=== PATIENT | female | born 1965 | race Caucasian/White ===

== ENCOUNTER 2017-03-13 19:46 | Emergency (ER) | payer SELFPAY ==
[~2017-03-13] VITALS: Wt 74.0 kg
== END 2017-03-14 00:15 | disposition left against medical advice (07) ==
LOC: E/R 19:46
DX: Z53.21 Procedure and treatment not carried out due to patient leaving prior to being seen by health care provider (principal)
CPT/HCPCS: 93005

== ENCOUNTER 2018-10-24 19:53 | Emergency (ER) | payer OTHER ==
[~2018-10-24] VITALS: Ht 160 cm; Wt 82.0 kg
[2018-10-24 20:04] VITALS: Ht 160 cm; Wt 82.0 kg
[2018-10-24] MEDS ORDERED: KETOROLAC 15 MG INJ IV STA (21:16)
--- NOTE | 2018-10-24 21:22 | ERD ---
ER Documentation Chief Complaint Chief Complaint vag bleed w/pelvic pain x 3 months; hx HTN HPI 53-year-old woman with a long history of dysfunctional uterine bleeding and uterine fibroids here for pain control. She has had multiple previous ultrasounds and workups and states she is going to call her pageant director on Saturday to schedule appointment for uterine biopsy. She was just discharged from [facility] with a prescription for tranexamic acid p.o., nitrofurantoin, and ibuprofen. She recently completed a round of medroxyprogesterone but was told she should not take any more estrogen or progesterone medications until uterine biopsy has been performed. She states she has been having irregular intermittent daily uterine bleeding for the last 3 months. Recent blood work was within normal limits, patient denies fevers or chills, no loss of consciousness, no chest pain or shortness of breath. Patient states her ibuprofen is not working and is requesting IV opioids ROS All systems reviewed and are negative except as per history of present illness. Allergies Allergies: Coded Allergies: No Known Allergy (Unverified , 03/13/17) FmHx Family History: No diabetes Physical Exam Vitals Vital Signs Date Temp Pulse Resp B/P (MAP) Pulse Ox O2 O2 Flow FiO2 Time Delivery Rate 10/24/18 99.9 100 22 183/116 97 20:04 (138) Physical Exam GENERAL: Well-developed, well-nourished, well-hydrated, in no apparent distress, looks nontoxic in appearance HEENT: Moist mucous membranes, pink conjunctiva, no cervical spine tenderness or step-off deformities, no goiter, no jaundice or icterus, extraocular movements intact without pain. No submandibular induration, and no pharyngeal erythema CARDIAC: Regular rate and rhythm, no murmurs rubs or gallops LUNGS: Clear bilaterally no wheezing crackles or stridor ABDOMEN: Soft nontender, no guarding, no rigidity, no rebound, no psoas sign no obturator sign. Normoactive bowel sounds SKIN: Warm and dry to touch, no abrasions, contusions, or hematomas, no lacerations, no ecchymosis, no target lesions, and without ulcers EXTREMITIES: No clubbing cyanosis or edema, calves are bilaterally symmetrical, no Homans sign, no popliteal cord sign. Distal pulses equal and bilateral PSYCH: Normal affect without agitation or irritability Results 24 hrs Current Medications Medications Dose Sig/Corky Start Time Status Last (Trade) Ordered Route PRN Stop Time Admin Dose Reason Admin Ketorolac 15 mg ONCE STAT 10/24/18 DC Tromethamine IV 21:16 (Toradol) 10/24/18 21:17 1 tab ONCE ONCE 10/24/18 Acetaminophen PO 21:30 / 10/24/18 21:31 Hydrocodone Bitart ([place] (5/325)) Procedures/MDM For pain control administered [place] 1 tablet p.o. and Toradol 15 mg IV x1. Patient's vital signs were normal and pain has improved. I deferred opioid analgesics to her primary care physician and pain specialist. Patient states she will be making an appointment with her pageant director on Saturday (in 2 days) and is currently undergoing therapy with ibuprofen, nitrofurantoin, and p.o. tranexamic acid. She states with the above therapy over the last day and a half her bleeding has improved and she has been feeling a little better Differential diagnoses considered, included but not limited to acute coronary syndrome, pulmonary embolism, aortic dissection, abdominal aortic aneurysm, sepsis, stroke, meningitis, encephalitis, pneumonia, appendicitis, cholecystitis, bowel obstruction, pyelonephritis, nephrolithiasis, cystitis, as well as metabolic, hematologic, and electrolyte abnormalities. As well as abscess, cellulitis, fractures, and dislocations. Patient feels much better at this time, and vital signs are normal, symptoms have improved. I did give strict instructions to return to the ED if symptoms continue or worsen, patient will otherwise follow-up with primary care physician. Patient understood instructions and agreed to plan. Disclaimer: Inadvertent spelling and grammatical errors are likely due to EHR/dictation software use and do not reflect on the overall quality of patient care. Also, please note that the electronic time recorded on this note does not necessarily reflect the actual time of the patient encounter. Departure Diagnosis: Primary Impression: Dysfunctional uterine bleeding Additional Impression: Uterine fibroid Uterine leiomyoma location: intramural Qualified Codes: D25.1 - Intramural leiomyoma of uterus Condition: Good Patient Instructions: Dysfunctional Uterine Bleeding CICI HERRING MD Oct 24, 2018 21:22
[2018-10-24 21:26] VITALS: BP 119/71; PULSE 73; RESP 23
[2018-10-24] MEDS ORDERED: HYDROCODONE/APAP (5/325) TAB PO ONE (21:30)
== END 2018-10-24 21:59 | disposition home or self-care (01) ==
LOC: E/R 19:53
DX: N93.8 Other specified abnormal uterine and vaginal bleeding (principal); D25.1 Intramural leiomyoma of uterus
CPT/HCPCS: J1885; Z7610; 99284

== ENCOUNTER 2018-10-28 20:10 | Inpatient (IN) | payer OTHER ==
[~2018-10-28] VITALS: Ht 157.5 cm; Wt 80.5 kg
[2018-10-28] MEDS ORDERED: PANT40TA4 PO (23:25)
[2018-10-28] MEDS ORDERED: BENA40TA56 PO (23:25)
[2018-10-28] MEDS ORDERED: NITR100C6 PO (23:25)
[2018-10-28] MEDS ORDERED: TRAN650T5 PO (23:25)
[2018-10-28] MEDS ORDERED: FER325 PO (23:25)
[2018-10-28] MEDS ORDERED: IBUP-1545 PO (23:25)
--- NOTE | 2018-10-29 00:46 | ERD ---
ER Documentation Chief Complaint Chief Complaint VB x 3 months awaiting approval for biopsy HPI Is a 51-year-old female with dysfunctional uterine bleeding for the past 3 months is awaiting approval for biopsy comes in today because she passed clots and used 8 pads. She said she has a history of blood transfusions in the past and wanted to make sure she did not need one. She denies any fevers chills nausea vomiting. Denies any other current complaints. ROS All systems reviewed and are negative except as per history of present illness. Medications Home Meds Reported Medications Ferrous Sulfate* (Ferrous Sulfate*) 325 Mg Tabec, 325 MG PO TID, TAB 10/28/18 Nitrofurantoin Monohyd Macrocr (Macrobid) 100 Mg Capsr, 100 MG PO BID for 7 Days, #14 TK 1 C PO BID FOR 7 DAYS 10/28/18 Pantoprazole* (Pantoprazole*) 40 Mg Tablet.dr, 40 MG PO DAILY, TAB 10/28/18 Ibuprofen* (Ibuprofen*) 800 Mg Tab, 800 MG PO Q6H PRN for PAIN, TAB 10/28/18 Tranexamic Acid (TRANEXAMIC ACID) 650 Mg Tablet, 650 MG PO, TAB 10/28/18 Benazepril Hcl* (Benazepril Hcl*) 40 Mg Tablet, 40 MG PO DAILY, #30 TAB 10/28/18 Allergies Allergies: Coded Allergies: aspirin (Unverified Adverse Reaction, Intermediate, EYE BLOODSHOT, 10/28/18) ibuprofen (Unverified Adverse Reaction, Intermediate, EYE BLOODSHOT, 10/28/18) PMhx/Soc History of Surgery: Yes () Hx Cardiac Disorders: Yes (HTN) Hx Miscellaneous Medical Probl: Yes (FIBROIDS) Hx Alcohol Use: No Hx Substance Use: No Hx Tobacco Use: No Smoking Status: Never smoker Physical Exam Vitals Vital Signs Date Temp Pulse Resp B/P (MAP) Pulse Ox O2 O2 Flow FiO2 Time Delivery Rate 10/29/18 82 16 122/70 99 Room Air 00:38 (87) 10/28/18 99.1 85 18 152/70 100 20:37 (97) Physical Exam Const: No acute distress Head: Atraumatic Eyes: Normal Conjunctiva ENT: Normal External Ears, Nose and Mouth. Neck: Full range of motion. No meningismus. Resp: Clear to auscultation bilaterally Cardio: Regular rate and rhythm, no murmurs Abd: Soft, non tender, non distended. Normal bowel sounds Skin: No petechiae or rashes Back: No midline or flank tenderness Ext: No cyanosis, or edema Neur: Awake and alert Psych: Normal Mood and Affect Result Diagram: 10/28/18222910/28/182229 Results 24 hrs Laboratory Tests Test 10/28/18 22:30 10/28/18 23:27 White Blood Count 8.4 10^3/ul Red Blood Count 3.10 10^6/ul Hemoglobin 8.1 g/dl Hematocrit 25.5 % Mean Corpuscular Volume 82.3 fl Mean Corpuscular Hemoglobin 26.1 pg Mean Corpuscular Hemoglobin Concent 31.8 g/dl Red Cell Distribution Width 22.6 % Platelet Count 304 10^3/UL Mean Platelet Volume 9.3 fl Immature Granulocytes % 0.700 % Neutrophils % 54.9 % Lymphocytes % 27.3 % Monocytes % 10.7 % Eosinophils % 5.8 % Basophils % 0.6 % Nucleated Red Blood Cells % 0.0 /100WBC Immature Granulocytes # 0.060 10^3/ul Neutrophils # 4.6 10^3/ul Lymphocytes # 2.3 10^3/ul Monocytes # 0.9 10^3/ul Eosinophils # 0.5 10^3/ul Basophils # 0.1 10^3/ul Nucleated Red Blood Cells # 0.0 10^3/ul Sodium Level 140 mmol/L Potassium Level 4.5 mmol/L Chloride Level 107 mmol/L Carbon Dioxide Level 23 mmol/L Anion Gap 10 Blood Urea Nitrogen 13 mg/dl Creatinine 0.92 mg/dl Est Glomerular Filtrat Rate mL/min > 60 mL/min Glucose Level 114 mg/dl Calcium Level 9.3 mg/dl Urine Color YELLOW Urine Clarity CLEAR Urine pH 5.0 Urine Specific [place] 1.008 Urine Ketones NEGATIVE mg/dL Urine Nitrite NEGATIVE mg/dL Urine Bilirubin NEGATIVE mg/dL Urine Urobilinogen NEGATIVE mg/dL Urine Leukocyte Esterase NEGATIVE Marilyn/ul Urine Microscopic RBC 176 /HPF Urine Microscopic WBC 6 /HPF Urine Squamous Epithelial Cells FEW /HPF Urine Amorphous Crystals FEW /HPF Urine Bacteria FEW /HPF Urine Hemoglobin 3+ mg/dL Urine Glucose NEGATIVE mg/dL Urine Total Protein NEGATIVE mg/dl Procedures/MDM Medical decision making: This 53-year-old female essentially with dysfunctional uterine bleeding. At this point she is clinically stable and does not require transfusion. However the patient has had a greater than 1 g drop in the past 4 days and comparing to a CBC from an outside hospital from 4 days ago. Given this I feel she needs to be admitted. Dr. tinsley is on-call and has been notified. [employer] on-call is also been notified via telemetric Departure Diagnosis: Primary Impression: Vaginal bleeding Condition: TONY Brown Oct 29, 2018 00:46
[2018-10-29 05:15] VITALS: Ht 157.5 cm; Wt 80.5 kg
[2018-10-29] MEDS ORDERED: ACETAMINOPHEN 325 MG TAB PO PRN (07:30)
[2018-10-29] MEDS ORDERED: ONDANSETRON 4 MG INJ IV PRN (07:30)
[2018-10-29 08:48] VITALS: BP 126/69; PULSE 67; RESP 18
[2018-10-29] MEDS: BENAZEPRIL 40 MG TAB PO SCH (09:00)
[2018-10-29] MEDS: SOD CHLORIDE 0.9% 1,000 ML IV SCH ×2 (09:13→22:10)
--- NOTE | 2018-10-29 11:50 | QN ---
Documentation Comment SEEN AND EXAMINED RAMONITA EDWARDS MD Oct 29, 2018 11:50
[2018-10-29 14:39] VITALS: BP 110/58; PULSE 82; RESP 16
[2018-10-29] MEDS: HYDROCODONE/APAP (5/325) TAB PO PRN (15:09)
[2018-10-29 20:00] VITALS: BP 119/55; PULSE 81; RESP 18
[2018-10-30 02:00] VITALS: BP 112/66; PULSE 79; RESP 18
[2018-10-30] MEDS: PANTOPRAZOLE (EC) 40 MG TAB PO SCH (05:35)
--- NOTE | 2018-10-30 06:54 | HP ---
DATE OF ADMISSION: 10/29/2018 REASON FOR ADMISSION: Menorrhagia. HISTORY OF PRESENTING ILLNESS: This is a 53-year-old female with a past medical history of DUB for t he past 3 months, who came to the emergency department because of worsening menstrual bleeding for past few days. According to the patient, she feels that she is going through menopause. She start ed her bleeding on her period in August. Since then, intermittently on and off. She has been havin g bleeding. She has had multiple OCPs, Provera and other pills; however, it did not work. The constantine mg was also admitted in [facility] in October, where she was diagnosed with DUB and was seen b y REGRADER. The patient had also seen REGRADER and was supposed to have a biopsy as an outpatient. Germain shania, the patient started having worsening bleeding for the last few days and made her worried and cam e to the emergency department. According to the patient, she was soaking a pad every 1 hour. The pa tient was feeling weak, dizzy. The patient also reported on her last admission at [facility], she required a blood transfusion. On admission, vital signs showed temperature 99.1, pulse 85, re spirations 16, blood pressure 142/70. White count 8.4, hemoglobin 8.1. BMP within normal limit. patient had a pelvic ultrasound; however, that showed consistent with uterine fibroids as noted abo ve and the patient was admitted for further management. PAST MEDICAL HISTORY: 1. Hypertension. 2. Anemia. 3. History of UTI. ALLERGIES: ASPIRIN AND IBUPROFEN. PAST SURGICAL HISTORY: 1. The patient had eye surgery in the right eye 4 years ago. 2. x2. SOCIAL HISTORY: Denies any history of smoking, alcohol or any drug use. Denies any recreational paxton g use. Lives in [place]. FAMILY HISTORY: Noncontributory. REVIEW OF SYSTEMS: The patient complains of menorrhagia, which has been intermittently on and off august of this year. The patient denies any abdominal pain, any nausea, vomiting, diarrhea, hea dache, blurry vision. Complained of some weakness and some dizziness. Denies any hematemesis, any m johanny, any bright red blood per rectum. PHYSICAL EXAMINATION: VITAL SIGNS: Currently, blood pressure 122/70, pulse 82, respirations 16, saturation 99% on room air . GENERAL: The patient is awake, alert, oriented, does not appear to be in any acute distress. HEENT: Pupils equal, round, reactive to light. ____ mucosa. NECK: Supple, no JVD. HEART: Regular rate and rhythm. LUNGS: Clear to auscultation bilaterally. ABDOMEN: Soft, nontender, nondistended, positive normoactive bowel sounds. The patient has well-hea led surgical scar on the abdomen. EXTREMITIES: No clubbing, cyanosis, or edema. The patient has pad soaked with blood. DIAGNOSTIC DATA: Shows hemoglobin 8.1, white count 8.4, platelet count 304. BMP within normal limit . UA shows RBCs consistent with bleeding. ASSESSMENT AND PLAN: This is a 53-year-old female presenting with: 1. Recurrent menorrhagia ____ secondary to DUB; however, a pelvic ultrasound shows the patient has m ultiple fibroids. 2. Acute blood loss anemia. ____ hemoglobin was 10 secondary to #1. 3. History of hypertension. PLAN: At this period of time, the patient is admitted to med-surg. The patient will be on symptomat ic control. We will transfuse blood if hemoglobin is less than 7. REGRADER consultation has been obta ined. The rest of the treatment will depend on the patient's hospitalization course. Dictated By: RAMONITA WYATT/ROSE MARIE Conf#: [id number] DID#: [id number] CC: TYRONE JONES MD;*[facility]*
[2018-10-30 08:00] VITALS: BP 122/58; PULSE 80; RESP 18
[2018-10-30] MEDS: BENAZEPRIL 40 MG TAB PO SCH (09:28)
--- NOTE | 2018-10-30 09:31 | PN ---
Date/Time of Note Date/Time of Note DATE: 10/30/18 TIME: 09:31 Assessment/Plan VTE Prophylaxis Risk score (from Ns)>0 risk: 1 SCD applied (from Ns): No SCD contraindicated: low risk/ambulating Pharmacological prophylaxis: NA/contraindicated Pharm contraindication: low risk/ambulating Lines/Catheters IV [facility]from [facility] Peripheral IV Assessment/Plan Assessment/Plan 53-year-old female presenting with: 1. Recurrent menorrhagia secondary to DUB; however, a pelvic ultrasound shows the patient has multiple fibroids. 2. Acute blood loss anemia hemoglobin was 10 secondary to #1. 3. History of hypertension. 4 iron deficiency anemia Plan -Monitor hemoglobin -IV iron -OBGYN plan to see - pain meds - cw benazepril Result Diagram: 10/30/18 0559 10/28/18 2230 Results 24hrs Laboratory Tests Test 10/29/18 09:32 10/30/18 05:59 Hemoglobin 8.5 L 8.0 L Hematocrit 26.9 L 25.3 L White Blood Count 7.2 Red Blood Count 3.09 L Mean Corpuscular Volume 81.9 L Mean Corpuscular Hemoglobin 25.9 L Mean Corpuscular Hemoglobin Concent 31.6 L Red Cell Distribution Width 21.5 H Platelet Count 280 Mean Platelet Volume 9.2 Immature Granulocytes % 0.800 H Neutrophils % 49.2 Lymphocytes % 32.5 Monocytes % 9.9 Eosinophils % 6.8 Basophils % 0.8 Nucleated Red Blood Cells % 0.0 Immature Granulocytes # 0.060 H Neutrophils # 3.5 Lymphocytes # 2.3 Monocytes # 0.7 Eosinophils # 0.5 Basophils # 0.1 Nucleated Red Blood Cells # 0.0 Iron Level 27 L Total Iron Binding Capacity 339 Percent Iron Saturation 8 L Subjective 24 Hr Interval Summary Free Text/Dictation Patient is still bleeding however is less Hemoglobin 8.0 today Exam/Review of Systems Exam Vitals Vital Signs Date Temp Pulse Resp B/P (MAP) Pulse Ox O2 O2 Flow FiO2 Time Delivery Rate 10/30/18 97.9 79 18 112/66 99 02:00 (81) 10/29/18 Room Air 14:39 Intake and Output 10/29/18 10/29/18 10/30/18 1515:00 23:00 07:00 IntakeIntake Total 120 ml 1600 ml 490 ml BalanceBalance 120 ml 1600 ml 490 ml Exam ENERAL: The patient is awake, alert, oriented, does not appear to be in any acute distress. HEENT: Pupils equal, round, reactive to light. pale mucosa NECK: Supple, no JVD. HEART: Regular rate and rhythm. LUNGS: Clear to auscultation bilaterally. ABDOMEN: Soft, nontender, nondistended, positive normoactive bowel sounds. The patient has well-healed surgical scar on the abdomen. EXTREMITIES: No clubbing, cyanosis, or edema. The patient has pad soaked with blood. Results Results 24hrs Laboratory Tests Test 10/29/18 09:32 10/30/18 05:59 Hemoglobin 8.5 L 8.0 L Hematocrit 26.9 L 25.3 L White Blood Count 7.2 Red Blood Count 3.09 L Mean Corpuscular Volume 81.9 L Mean Corpuscular Hemoglobin 25.9 L Mean Corpuscular Hemoglobin Concent 31.6 L Red Cell Distribution Width 21.5 H Platelet Count 280 Mean Platelet Volume 9.2 Immature Granulocytes % 0.800 H Neutrophils % 49.2 Lymphocytes % 32.5 Monocytes % 9.9 Eosinophils % 6.8 Basophils % 0.8 Nucleated Red Blood Cells % 0.0 Immature Granulocytes # 0.060 H Neutrophils # 3.5 Lymphocytes # 2.3 Monocytes # 0.7 Eosinophils # 0.5 Basophils # 0.1 Nucleated Red Blood Cells # 0.0 Iron Level 27 L Total Iron Binding Capacity 339 Percent Iron Saturation 8 L Medications Medication Current Medications Sodium Chloride 1,000 ml @ 70 mls/hr [id number] IV Last administered on 10/29/18at 22:10; Admin Dose 70 MLS/HR; Start 10/29/18 at 07:30 Acetaminophen (Tylenol Tab) 650 mg Q6H PRN PO MILD PAIN(1-3)OR ELEVATED TEMP; Start 10/29/18 at 07:30 Acetaminophen/ Hydrocodone Bitart ([place] (5/325)) 1 tab Q6H PRN PO MODERATE PAIN LEVEL 4-6 Last administered on 10/29/18at 15:09; Admin Dose 1 TAB; Start 10/29/18 at 07:30 Ondansetron HCl (Zofran Inj) 4 mg Q6H PRN IV NAUSEA AND/OR VOMITING; Start 10/29/18 at 07:30 Pantoprazole (Protonix Tab) 40 mg DAILY@06 PO Last administered on 10/30/18at 05:35; Admin Dose 40 MG; Start 10/30/18 at 06:00 Benazepril HCl (Lotensin) 40 mg DAILY PO ; Start 10/29/18 at 09:00 RAMONITA EDWARDS MD Oct 30, 2018 09:31
--- NOTE | 2018-10-30 10:18 | HP ---
Date/Time of Note Date/Time of Note DATE: 10/30/18 TIME: 10:16 Assessment/Plan VTE Prophylaxis Risk score (from Ns)>0 risk: 1 SCD applied (from Ns): No Lines/Catheters IV Catheter Type (from Nrs): Peripheral IV Assessment/Plan Result Diagram: 10/30/18 0559 10/28/18 2230 Results 24hrs Laboratory Tests Test 10/30/18 05:59 White Blood Count 7.2 Red Blood Count 3.09 L Hemoglobin 8.0 L Hematocrit 25.3 L Mean Corpuscular Volume 81.9 L Mean Corpuscular Hemoglobin 25.9 L Mean Corpuscular Hemoglobin Concent 31.6 L Red Cell Distribution Width 21.5 H Platelet Count 280 Mean Platelet Volume 9.2 Immature Granulocytes % 0.800 H Neutrophils % 49.2 Lymphocytes % 32.5 Monocytes % 9.9 Eosinophils % 6.8 Basophils % 0.8 Nucleated Red Blood Cells % 0.0 Immature Granulocytes # 0.060 H Neutrophils # 3.5 Lymphocytes # 2.3 Monocytes # 0.7 Eosinophils # 0.5 Basophils # 0.1 Nucleated Red Blood Cells # 0.0 Iron Level 27 L Total Iron Binding Capacity 339 Percent Iron Saturation 8 L HPI/ROS Admit Date/Time Admit Date/Time Oct 29, 2018 at 02:13 PMH/Family/Social Past Medical History Medications Current Medications Sodium Chloride 1,000 ml @ 70 mls/hr [id number] IV Last administered on 10/29/18at 22:10; Admin Dose 70 MLS/HR; Start 10/29/18 at 07:30 Acetaminophen (Tylenol Tab) 650 mg Q6H PRN PO MILD PAIN(1-3)OR ELEVATED TEMP; Start 10/29/18 at 07:30 Acetaminophen/ Hydrocodone Bitart ([place] (5/325)) 1 tab Q6H PRN PO MODERATE PAIN LEVEL 4-6 Last administered on 10/29/18at 15:09; Admin Dose 1 TAB; Start 10/29/18 at 07:30 Ondansetron HCl (Zofran Inj) 4 mg Q6H PRN IV NAUSEA AND/OR VOMITING; Start 10/11 at 07:30 Pantoprazole (Protonix Tab) 40 mg DAILY@06 PO Last administered on 10/30/18at 05:35; Admin Dose 40 MG; Start 10/30/18 at 06:00 Benazepril HCl (Lotensin) 40 mg DAILY PO Last administered on 10/30/18at 09:28; Admin Dose 40 MG; Start 10/29/18 at 09:00 Ferric Sodium Gluconate Complex 125 mg/Sodium Chloride 110 ml @ 110 mls/hr DAILY@1300 IVPB ; Start 10/30/18 at 13:00; Stop 11/03/18 at 13:59 Coded Allergies: aspirin (Unverified Adverse Reaction, Intermediate, EYE BLOODSHOT, 10/28/18) ibuprofen (Unverified Adverse Reaction, Intermediate, EYE BLOODSHOT, 10/28/18) Social History Smoking Status: Never smoker Exam/Review of Systems Vital Signs Vitals Vital Signs Date Temp Pulse Resp B/P (MAP) Pulse Ox O2 O2 Flow FiO2 Time Delivery Rate 10/30/18 97.9 79 18 112/66 99 02:00 (81) 10/29/18 Room Air 14:39 Intake and Output 10/29/18 10/29/18 10/30/18 1515:00 23:00 07:00 IntakeIntake Total 120 ml 1600 ml 490 ml BalanceBalance 120 ml 1600 ml 490 ml Exam Additional Comments PROCEDURE: US Pelvis with transvaginal. CLINICAL INDICATION: Vaginal bleeding. Last menstrual period 07/16/2018 TECHNIQUE: Multiple sonographic images of the pelvis were obtained utilizing a transabdominal and endovaginal technique. The images were reviewed on a PACS workstation. COMPARISON: None. FINDINGS: The uterus measures 10.7 x 6.5 x 8.3 cm. Rounded heterogeneous echotexture uterine masses suggestive of fibroids are seen, a 1.8 cm submucosal fibroid in the lower uterine segment, a 1.1 cm intramural fibroid in the lower uterine segment, a 1 cm submucosal fibroid in the posterior fundus and a 1.4 cm intramural fibroid in the superior fundus. The thickness of the endometrium equals 1.1 cm. The right ovary is not seen. The left ovary measures 2.9 x 1.9 x 1.9 cm and is unremarkable and contains a 1.3 cm dominant follicle - no follow- up imaging of this is recommended. No adnexal mass or free intrapelvic fluid is seen. IMPRESSION: Consistent with uterine fibroids noted above. Right ovary not seen. Please see above. RPTAT: LARRY MALDONADO MD Oct 30, 2018 10:18
[2018-10-30] MEDS: SOD FERRIC GLUC COMPLX 125 MG in SOD CHLORIDE 0.9% 100 ML IVPB SCH (13:03)
[2018-10-30] MEDS: SOD CHLORIDE 0.9% 1,000 ML IV SCH (13:03)
[2018-10-30 14:48] VITALS: BP 99/55; PULSE 82; RESP 18
--- NOTE | 2018-10-30 15:35 | HP ---
Date/Time of Note Date/Time of Note DATE: 10/30/18 TIME: 15:25 Assessment/Plan VTE Prophylaxis Risk score (from Nsg)>0 risk: 2 SCD applied (from Nsg): Yes Pharm contraindication: low risk/ambulating Lines/Catheters IV Catheter Type (from Nrs): Peripheral IV Assessment/Plan Hospital Course Perimenopausal abnormal uterine bleeding, post blood transfusion x2 Tried progesterone and tranxremic acid that did not help Abnormal weight gain Cannot rule out thyroid problem Ultrasound showed evidence of fibroid, intramural and possible submucosal Patient is a candidate for endometrial biopsy Currently patient hemodynamically stable. Bleeding significantly decreased since admission Recommended the patient to proceed with hysteroscopy and endometrial biopsy Recommended workup for possible hypothyroidism. TSH free T4 and prolactin requested Discussed with the patient importance of close follow-up after above procedure with her PEN TENDER within a week after discharge to discuss about the options of treatment after obtaining pathology results from the hospital. Risk and benefit of hysteroscopy and D&C including risk of infection, bleeding, damage to surrounding scratch and risk of uterine perforation discussed with the patient in detail Patient verbalized understanding above risks and desires to proceed She will be booked for hysteroscopy and D&C for tomorrow. Will be done for the next upcoming OB hospitalist All questions were answered to patient's best satisfaction. Result Diagram: 10/30/18 0559 10/28/18 2230 Results 24hrs Laboratory Tests Test 10/30/18 05:59 White Blood Count 7.2 Red Blood Count 3.09 L Hemoglobin 8.0 L Hematocrit 25.3 L Mean Corpuscular Volume 81.9 L Mean Corpuscular Hemoglobin 25.9 L Mean Corpuscular Hemoglobin Concent 31.6 L Red Cell Distribution Width 21.5 H Platelet Count 280 Mean Platelet Volume 9.2 Immature Granulocytes % 0.800 H Neutrophils % 49.2 Lymphocytes % 32.5 Monocytes % 9.9 Eosinophils % 6.8 Basophils % 0.8 Nucleated Red Blood Cells % 0.0 Immature Granulocytes # 0.060 H Neutrophils # 3.5 Lymphocytes # 2.3 Monocytes # 0.7 Eosinophils # 0.5 Basophils # 0.1 Nucleated Red Blood Cells # 0.0 Iron Level 27 L Total Iron Binding Capacity 339 Percent Iron Saturation 8 L HPI/ROS Admit Date/Time Admit Date/Time Oct 29, 2018 at 02:13 Hx of Present Illness 53-year-old female presented to the hospital in the emergency room with complaint of increased heavy vaginal bleeding that has a started since 3 months ago. Per patient reports history of regular cycles until August 2018. Reports her bleeding was moderate. Reports her cycles became irregular since August 2018 and had been continuously bleeding. Per patient at times bleeding is so heavy that she needs to change her pads every hour. She has been currently admitted to medicine service and undergoing iron transfusion. Per patient had been seen about a month ago at [facility] with the same complaint of abnormal uterine bleeding and had undergone blood transfusion. Patient also reports another episode of blood transfusion in the last 3 months. She has been given progesterone and Traxemic acid for continous menorrhagia at formerly [facility]. She also reports cramps. Had been given ibuprofen for menstrual cramps however reports each time when she starts ibuprofen to relieve her pain however her bleeding significantly increased. Patient currently denies any chest pain, shortness of breath, dizziness, lightheadedness now. She has been receiving iron transfusion. Had a pelvic ultrasound that showed evidence of fibroid uterus. Patient never had any evaluation for abnormal uterine bleeding for the past 3 months. Denies having any biopsy. She denies any known history of thyroid problem however complains of increased weight gain since bleeding started. Reports gaining about 40 pounds in the last 3 months. ROS Subjective hx not possible: other Constitutional: no complaints Eyes: no complaints ENT: no complaints Respiratory: no complaints Cardiovascular: no complaints Gastrointestinal: no complaints Genitourinary: no complaints Musculoskeletal: no complaints Skin: no complaints Neurologic: no complaints Endocrine: no complaints Lymphatic: no complaints Psychological: no complaints Immunologic: no complaints PMH/Family/Social Past Medical History Past medical history: 1; hypertension 2. Menorrhagia 3. Fibroid Past surgical history: 1. Status post x2 2. Status post laparoscopic cholecystectomy [employer]ELOPER history: , x2 No history of abnormal Pap smear in the past. Last mammogram 2 years ago and per patient had a lump in the left breast underwent biopsy that was benign. Last Pap smear was about 2 years ago. Was normal. Denies any history of ovarian cyst. Abnormal uterine bleeding for the past 3 months with episodes of menometrorrhag ia Medications Current Medications Sodium Chloride 1,000 ml @ 70 mls/hr [id number] IV Last administered on 10/30/18at 13:03; Admin Dose 70 MLS/HR; Start 10/29/18 at 07:30 Acetaminophen (Tylenol Tab) 650 mg Q6H PRN PO MILD PAIN(1-3)OR ELEVATED TEMP; Start 10/29/18 at 07:30 Acetaminophen/ Hydrocodone Bitart ([place] (5/325)) 1 tab Q6H PRN PO MODERATE PAIN LEVEL 4-6 Last administered on 10/29/18at 15:09; Admin Dose 1 TAB; Start 10/29/18 at 07:30 Ondansetron HCl (Zofran Inj) 4 mg Q6H PRN IV NAUSEA AND/OR VOMITING; Start 10/29/18 at 07:30 Pantoprazole (Protonix Tab) 40 mg DAILY@06 PO Last administered on 10/30/18at 05:35; Admin Dose 40 MG; Start 10/30/18 at 06:00 Benazepril HCl (Lotensin) 40 mg DAILY PO Last administered on 10/30/18at 09:28; Admin Dose 40 MG; Start 10/29/18 at 09:00 Ferric Sodium Gluconate Complex 125 mg/Sodium Chloride 110 ml @ 110 mls/hr DAILY@1300 IVPB Last administered on 10/30/18at 13:03; Admin Dose 110 MLS/HR; Start 10/30/18 at 13:00; Stop 11/03/18 at 13:59 Coded Allergies: aspirin (Unverified Adverse Reaction, Intermediate, EYE BLOODSHOT, 10/28/18) ibuprofen (Unverified Adverse Reaction, Intermediate, EYE BLOODSHOT, 10/28/18) Social History Smoking Status: Never smoker Exam/Review of Systems Vital Signs Vitals Vital Signs Date Temp Pulse Resp B/P (MAP) Pulse Ox O2 O2 Flow FiO2 Time Delivery Rate 10/30/18 98.0 82 18 99/55 (70) 99 Room Air 14:48 Intake and Output 10/29/18 10/29/18 10/30/18 1515:00 23:00 07:00 IntakeIntake Total 120 ml 1600 ml 490 ml BalanceBalance 120 ml 1600 ml 490 ml Exam Constitutional: alert, oriented, well developed Psych: no complaints, nl mood/affect, anxiety Head: normocephalic, atraumatic Eyes: nl conjunctiva, EOMI, nl lids Neck: supple, non-tender Gastrointestinal: soft, nl liver, spleen, non-tender Genitourinary - Female: other (External genitalia: Within normal limits. Speculum exam: Scant minimal amount of blood in the vault. Cervix appears normal. No vaginal or cervical lesions noted. Bimanual examination: No CMT. No fullness or tenderness in the adnexa. Uterus about 11-12 cm size and nontender to palpation. No abnormal vaginal discharge noted) Musculoskeletal: nl extremities to inspection, nl gait and stance Extremities: normal pulses Neurological: CHILD HEALTH ASSOCIATE II-XII intact, nl mental status, nl speech Skin: nl turgor Additional Comments PROCEDURE: US Pelvis with transvaginal. CLINICAL INDICATION: Vaginal bleeding. Last menstrual period 07/16/2018 TECHNIQUE: Multiple sonographic images of the pelvis were obtained utilizing a transabdominal and endovaginal technique. The images were reviewed on a PACS workstation. COMPARISON: None. FINDINGS: The uterus measures 10.7 x 6.5 x 8.3 cm. Rounded heterogeneous echotexture uterine masses suggestive of fibroids are seen, a 1.8 cm submucosal fibroid in the lower uterine segment, a 1.1 cm intramural fibroid in the lower uterine segment, a 1 cm submucosal fibroid in the posterior fundus and a 1.4 cm intramural fibroid in the superior fundus. The thickness of the endometrium equals 1.1 cm. The right ovary is not seen. The left ovary measures 2.9 x 1.9 x 1.9 cm and is unremarkable and contains a 1.3 cm dominant follicle - no follow- up imaging of this is recommended. No adnexal mass or free intrapelvic fluid is seen. IMPRESSION: Consistent with uterine fibroids noted above. Right ovary not seen. Please see above. LARRY SEALS MD Oct 30, 2018 15:35
[2018-10-30] MEDS ORDERED: CEFAZOLIN 2 GM/50 ML (PMX) 50 ML IVPB ONE (19:30)
[2018-10-30 20:00] VITALS: BP 124/60; PULSE 84; RESP 18
[2018-10-30] MEDS: LACTATED RINGER'S 1,000 ML IV SCH (20:17)
[2018-10-31] VITALS (22 sets, daily range): BP systolic 117–139; BP diastolic 56–78; PULSE 64–82; RESP 15–27
[2018-10-31] MEDS: SOD CHLORIDE 0.9% 1,000 ML IV SCH (01:28)
[2018-10-31] MEDS: LACTATED RINGER'S 1,000 ML IV SCH ×4 (04:27→20:21)
[2018-10-31] MEDS: PANTOPRAZOLE (EC) 40 MG TAB PO SCH (05:40)
[2018-10-31] MEDS ORDERED: CEFAZOLIN 2 GM/50 ML (PMX) 50 ML IVPB ONE (06:00)
[2018-10-31] MEDS: BENAZEPRIL 40 MG TAB PO SCH (09:00)
--- NOTE | 2018-10-31 09:08 | PN ---
Date/Time of Note Date/Time of Note DATE: 10/31/18 TIME: 09:07 Assessment/Plan VTE Prophylaxis Risk score (from [facility] [place])>0 risk: 2 SCD applied (from [facility] [place]): No SCD contraindicated: low risk/ambulating Pharmacological prophylaxis: NA/contraindicated Pharm contraindication: low risk/ambulating, bleeding Lines/Catheters IV Catheter Type (from [place]): Peripheral IV Urinary Cath still in place: No Assessment/Plan Hospital Course 1. Recurrent menorrhagia secondary to DUB; however, a pelvic ultrasound shows the patient has multiple fibroids. 2. Acute blood loss anemia hemoglobin was 10 secondary to #1. 3. History of hypertension. 4 Iron deficiency anemia 5. Obesity Assessment/Plan -euthyroid -Monitor hemoglobin, today Hg 8.2 -c/w IV iron -DVT prop. amb., has bleeding -GI prophylaxis Protonix -OBGYN plan to do hysterectomy - pain meds - cw benazepril Result Diagram: 10/31/18 0602 10/28/18 2230 Results 24hrs Laboratory Tests Test 10/30/18 15:47 10/30/18 19:33 10/31/18 06:02 Thyroid Stimulating Hormone (TSH) 1.440 Free Thyroxine 1.09 Hemoglobin 7.8 L 8.2 L Hematocrit 24.2 L 25.6 L White Blood Count 9.4 # Red Blood Count 3.11 L Mean Corpuscular Volume 82.3 Mean Corpuscular Hemoglobin 26.4 L Mean Corpuscular Hemoglobin Concent 32.0 Red Cell Distribution Width 21.4 H Platelet Count 292 Mean Platelet Volume 9.6 Immature Granulocytes % 1.200 H Neutrophils % 58.2 Lymphocytes % 26.6 Monocytes % 9.1 Eosinophils % 4.2 Basophils % 0.7 Nucleated Red Blood Cells % 0.0 Immature Granulocytes # 0.110 H Neutrophils # 5.5 Lymphocytes # 2.5 Monocytes # 0.9 Eosinophils # 0.4 Basophils # 0.1 Nucleated Red Blood Cells # 0.0 Subjective 24 Hr Interval Summary Constitutional: no complaints, improved Exam/Review of Systems Exam Vitals Vital Signs Date Temp Pulse Resp B/P (MAP) Pulse Ox O2 O2 Flow FiO2 Time Delivery Rate 10/31/18 98.6 78 18 120/57 99 Room Air 08:40 (78) Intake and Output 10/30/18 10/30/18 10/31/18 1414:59 22:59 06:59 IntakeIntake Total 1500 ml 285 ml 1060 ml OutputOutput Total 300 ml BalanceBalance 1200 ml 285 ml 1060 ml Constitutional: alert, oriented Respiratory: clear to auscultation Cardiovascular: regular rate and rhythm Gastrointestinal: soft Genitourinary - Female: CVA tenderness; No nl adnexae, No nl external genitalia, No CMT, No uterus, No other Results Results 24hrs Laboratory Tests Test 10/30/18 15:47 10/30/18 19:33 10/31/18 06:02 Thyroid Stimulating Hormone (TSH) 1.440 Free Thyroxine 1.09 Hemoglobin 7.8 L 8.2 L Hematocrit 24.2 L 25.6 L White Blood Count 9.4 # Red Blood Count 3.11 L Mean Corpuscular Volume 82.3 Mean Corpuscular Hemoglobin 26.4 L Mean Corpuscular Hemoglobin Concent 32.0 Red Cell Distribution Width 21.4 H Platelet Count 292 Mean Platelet Volume 9.6 Immature Granulocytes % 1.200 H Neutrophils % 58.2 Lymphocytes % 26.6 Monocytes % 9.1 Eosinophils % 4.2 Basophils % 0.7 Nucleated Red Blood Cells % 0.0 Immature Granulocytes # 0.110 H Neutrophils # 5.5 Lymphocytes # 2.5 Monocytes # 0.9 Eosinophils # 0.4 Basophils # 0.1 Nucleated Red Blood Cells # 0.0 Medications Medication Current Medications Acetaminophen (Tylenol Tab) 650 mg Q6H PRN PO MILD PAIN(1-3)OR ELEVATED TEMP; Start 10/29/18 at 07:30 Acetaminophen/ Hydrocodone Bitart ([place] (5/325)) 1 tab Q6H PRN PO MODERATE PAIN LEVEL 4-6 Last administered on 10/29/18at 15:09; Admin Dose 1 TAB; Start 10/29/18 at 07:30 Ondansetron HCl (Zofran Inj) 4 mg Q6H PRN IV NAUSEA AND/OR VOMITING; Start 10/29/18 at 07:30 Pantoprazole (Protonix Tab) 40 mg DAILY@06 PO Last administered on 10/31/18at 05:40; Admin Dose 40 MG; Start 10/30/18 at 06:00 Benazepril HCl (Lotensin) 40 mg DAILY PO Last administered on 10/30/18at 09:28; Admin Dose 40 MG; Start 10/29/18 at 09:00 Ferric Sodium Gluconate Complex 125 mg/Sodium Chloride 110 ml @ 110 mls/hr DAILY@1300 IVPB Last administered on 10/30/18at 13:03; Admin Dose 110 MLS/HR; Start 10/30/18 at 13:00; Stop 11/03/18 at 13:59 Lactated Ringer's 1,000 ml @ 125 mls/hr Q8H IV Last administered on 10/31/18at 04:27; Admin Dose 125 MLS/HR; Start 10/30/18 at 19:08 DONY RUANO 22, 2019 09:08
[2018-10-31] MEDS: SOD FERRIC GLUC COMPLX 125 MG in SOD CHLORIDE 0.9% 100 ML IVPB SCH (12:48)
--- NOTE | 2018-10-31 15:09 | PREAC ---
Date/Time of Note Date/Time of Note DATE: 10/31/18 TIME: 15:06 Anesthesia Eval and Record Evaluation Time Pre-Procedure Interview DATE: 10/31/18 TIME: 15:06 Age 53 Sex female NPO: 8 hrs Preoperative diagnosis Anemia, abnormal bleeding Planned procedure D&C, Hysteroscopy Past Medical History Past Medical History: Includes GI: GERD, Morbid obesity Heme: Anemia Surgery & Anesthesia Issues No known issue Meds Anticoagulation: No Beta [place] within 24 hr: No Reason Beta [place] not given: Pt. not on B-[place] Reported Medications Ferrous Sulfate* (Ferrous Sulfate*) 325 Mg Tabec, 325 MG PO TID, TAB 10/28/18 Nitrofurantoin Monohyd Macrocr (Macrobid) 100 Mg Capsr, 100 MG PO BID for 7 Days, #14 TK 1 C PO BID FOR 7 DAYS 10/28/18 Pantoprazole* (Pantoprazole*) 40 Mg Tablet.dr, 40 MG PO DAILY, TAB 10/28/18 Ibuprofen* (Ibuprofen*) 800 Mg Tab, 800 MG PO Q6H PRN for PAIN, TAB 10/28/18 Tranexamic Acid (TRANEXAMIC ACID) 650 Mg Tablet, 650 MG PO, TAB 10/28/18 Benazepril Hcl* (Benazepril Hcl*) 40 Mg Tablet, 40 MG PO DAILY, #30 TAB 10/28/18 Current Medications Acetaminophen (Tylenol Tab) 650 mg Q6H PRN PO MILD PAIN(1-3)OR ELEVATED TEMP; Start 10/29/18 at 07:30 Acetaminophen/ Hydrocodone Bitart ([place] (5/325)) 1 tab Q6H PRN PO MODERATE PAIN LEVEL 4-6 Last administered on 10/29/18at 15:09; Admin Dose 1 TAB; Start 10/29/18 at 07:30 Ondansetron HCl (Zofran Inj) 4 mg Q6H PRN IV NAUSEA AND/OR VOMITING; Start 10/29/18 at 07:30 Pantoprazole (Protonix Tab) 40 mg DAILY@06 PO Last administered on 10/31/18at 05:40; Admin Dose 40 MG; Start 10/30/18 at 06:00 Benazepril HCl (Lotensin) 40 mg DAILY PO Last administered on 10/30/18at 09:28; Admin Dose 40 MG; Start 10/29/18 at 09:00 Ferric Sodium Gluconate Complex 125 mg/Sodium Chloride 110 ml @ 110 mls/hr DAILY@1300 IVPB Last administered on 10/31/18at 12:48; Admin Dose 110 MLS/HR; Start 10/30/18 at 13:00; Stop 11/03/18 at 13:59 Lactated Ringer's 1,000 ml @ 125 mls/hr Q8H IV Last administered on 10/31/18at 12:48; Admin Dose 125 MLS/HR; Start 10/30/18 at 19:08 Meds reviewed: Yes Allergies Coded Allergies: aspirin (Unverified Adverse Reaction, Intermediate, EYE BLOODSHOT, 10/28/18) ibuprofen (Unverified Adverse Reaction, Intermediate, EYE BLOODSHOT, 10/28/18) Allergies Reviewed: Yes Labs/Studies Labs Reviewed: Reviewed by anesthesiologist Result Diagram: 10/31/18 0602 10/28/18 2230 Laboratory Tests 10/31/18 06:02 test: Negative Studies: ECG Pre-procedure Exam Last vitals Vital Signs Date Temp Pulse Resp B/P (MAP) Pulse Ox O2 O2 Flow FiO2 Time Delivery Rate 10/31/18 98.6 78 18 120/57 99 Room Air 08:40 (78) Airway: Adequate mouth opening, Adequate thyromental dist Mallampati: Mallampati II Teeth: Normal Lung: Normal Heart: Normal ASA Physical Status ASA physical status: 2 Emergency: None Planned Anesthetic General/MAC: LMA Planned Pain Management Parenteral pain med Pre-operative Attestations Prior to commencing anesthesia and surgery, the patient was re-evaluated, there was verification of: *The patient's identity *The results of appropriate recent lab work and preoperative vital signs *The above evaluation not changing prior to induction *Anesthetic plan, risk benefits, alternative and complications discussed with patient/family; questions answered; patient/family understands, accepts and wishes to proceed. VENKATESH RAWLS MD Oct 31, 2018 15:09
[2018-10-31] MEDS ORDERED: FENTAnyl 50 MCG/ML VIAL ONE (15:17)
[2018-10-31] MEDS ORDERED: MIDAZOLAM 1 MG/ML 2 ML INJ ONE (15:17)
[2018-10-31] MEDS ORDERED: PROPOFOL 20 ML ONE (16:16)
[2018-10-31] MEDS ORDERED: CEFAZOLIN 1 GM INJ ONE (16:16)
[2018-10-31] MEDS ORDERED: SEVOFLURANE 15 MIN ONE (16:16)
[2018-10-31] MEDS ORDERED: LIDOCAINE 2% (SDV) 5 ML INJ ONE (16:16)
[2018-10-31] MEDS ORDERED: ONDANSETRON 4 MG INJ ONE (16:17)
[2018-10-31] MEDS ORDERED: ONDANSETRON 4 MG INJ IV PRN (16:30)
[2018-10-31] MEDS ORDERED: FENTAnyl 50 MCG/ML VIAL IV PRN (16:30)
[2018-10-31] MEDS ORDERED: HYDROmorphONE 1 MG/5 ML IV SYRINGE IV PRN (16:30)
[2018-10-31] MEDS ORDERED: MEPERIDINE 25 MG INJ IV PRN (16:30)
[2018-10-31] MEDS ORDERED: DIPHENHYDRAMINE 50 MG INJ IV PRN (16:30)
--- NOTE | 2018-10-31 16:31 | PAC ---
Date/Time of Note Date/Time of Note DATE: 10/31/18 TIME: 16:31 Post-Anesthesia Notes Post-Anesthesia Note Last documented vital signs Vital Signs Date Temp Pulse Resp B/P (MAP) Pulse Ox O2 O2 Flow FiO2 Time Delivery Rate 10/31/18 98.6 16:26 10/31/18 78 18 120/57 99 Room Air 08:40 (78) Activity: WNL Respiratory function: WNL Cardiovascular function: WNL Mental status: Baseline Pain reasonably controlled: Yes Hydration appropriate: Yes Nausea/Vomiting absent: Yes Comments BNP:112/56, P:78, Spo2:100%, T:98,9 VENKATESH RAWLS MD Oct 31, 2018 16:31
[2018-10-31] MEDS: HYDROmorphONE 1 MG/5 ML IV SYRINGE IV PRN ×2 (17:02→17:20)
--- NOTE | 2018-10-31 18:41 | SIPON ---
Date/Time of Note Date/Time of Note DATE: 10/31/18 TIME: 18:38 Operative Report Preoperative Diagnosis abnormal uterine fiboid menorrhagia Postoperative Diagnosis same as above submucosal fibroid Operation/Procedure Performed hysteroscopy dilatation curettage Surgeon see signature line it administrative assistant MT Anesthesia: general Estimated blood loss: 0 - 10 ml's Transfusion Required none Specimen uterine curettings Grafts/Implants none Complications none VIRGIE KASPER MD Oct 31, 2018 18:41
--- NOTE | 2018-10-31 18:45 | QN ---
Documentation Comment A s/p Hysteroscopy uterine curettage uteine fibroids (including submucous fibroids) P f/u at her PMD for referral for UNIT ASSISTANT check IVRGIE KASPER MD Oct 31, 2018 18:45
[2018-10-31] MEDS: HYDROCODONE/APAP (5/325) TAB PO PRN (20:22)
[2018-11-01 02:06] VITALS: BP 94/50; PULSE 69; RESP 18
[2018-11-01 02:23] VITALS: BP 105/59; PULSE 72; RESP 18
[2018-11-01] MEDS: HYDROCODONE/APAP (5/325) TAB PO PRN ×3 (04:45→20:44)
[2018-11-01] MEDS: PANTOPRAZOLE (EC) 40 MG TAB PO SCH (06:09)
[2018-11-01] MEDS: LACTATED RINGER'S 1,000 ML IV SCH (06:10)
[2018-11-01 08:00] VITALS: BP 102/63; PULSE 68; RESP 18
[2018-11-01] MEDS: BENAZEPRIL 40 MG TAB PO SCH (08:46)
--- NOTE | 2018-11-01 12:31 | PN ---
Date/Time of Note Date/Time of Note DATE: 11/01/18 TIME: 12:30 Assessment/Plan VTE Prophylaxis Risk score (from Ns)>0 risk: 1 SCD applied (from Ns): Yes Pharmacological prophylaxis: NA/contraindicated Pharm contraindication: surgical contra Lines/Catheters IV [facility] Type (from [facility]): Peripheral IV Urinary Cath still in place: No Assessment/Plan Hospital Course 1. Recurrent menorrhagia secondary to DUB; however, a pelvic ultrasound shows the patient has multiple fibroids. S/p hysterectomy 11/01/2018 2. Acute blood loss anemia hemoglobin was 10 secondary to #1. 3. History of hypertension. 4 Iron deficiency anemia 5. Obesity Assessment/Plan -pain control -iron IV -DVT prop SCD GI proph. -euthyroid -Monitor hemoglobin, today Hg7.7 -GI prophylaxis Protonix -OBGYN postop - cw benazepril dc planning Result Diagram: 11/01/18 0553 11/01/18 0553 Results 24hrs Laboratory Tests Test 11/01/18 05:53 White Blood Count 7.9 Red Blood Count 2.90 L Hemoglobin 7.7 L Hematocrit 23.8 L Mean Corpuscular Volume 82.1 Mean Corpuscular Hemoglobin 26.6 L Mean Corpuscular Hemoglobin Concent 32.4 Red Cell Distribution Width 21.3 H Platelet Count 273 Mean Platelet Volume 9.5 Immature Granulocytes % 1.400 H Neutrophils % 60.8 Lymphocytes % 25.4 Monocytes % 8.1 Eosinophils % 3.7 Basophils % 0.6 Nucleated Red Blood Cells % 0.3 H Immature Granulocytes # 0.110 H Neutrophils # 4.8 Lymphocytes # 2.0 Monocytes # 0.6 Eosinophils # 0.3 Basophils # 0.1 Nucleated Red Blood Cells # 0.0 Sodium Level 140 Potassium Level 3.9 Chloride Level 106 Carbon Dioxide Level 27 Anion Gap 7 Blood Urea Nitrogen 8 Creatinine 0.83 Est Glomerular Filtrat Rate mL/min > 60 Glucose Level 85 Calcium Level 8.8 Subjective 24 Hr Interval Summary Constitutional: no complaints, improved Exam/Review of Systems Exam Vitals Vital Signs Date Temp Pulse Resp B/P (MAP) Pulse Ox O2 O2 Flow FiO2 Time Delivery Rate 11/01/18 98.5 68 18 102/63 99 Room Air 08:00 (76) 10/31/18 8.0 16:23 Intake and Output 310/31/18 11/01/18 1515:00 23:00 07:00 IntakeIntake Total 940 ml 2000 ml 1000 ml OutputOutput Total 10 ml BalanceBalance 940 ml 1990 ml 1000 ml Constitutional: alert, oriented Eyes: nl conjunctiva Neck: supple Cardiovascular: regular rate and rhythm Gastrointestinal: soft Results Results 24hrs Laboratory Tests Test 11/01/18 05:53 White Blood Count 7.9 Red Blood Count 2.90 L Hemoglobin 7.7 L Hematocrit 23.8 L Mean Corpuscular Volume 82.1 Mean Corpuscular Hemoglobin 26.6 L Mean Corpuscular Hemoglobin Concent 32.4 Red Cell Distribution Width 21.3 H Platelet Count 273 Mean Platelet Volume 9.5 Immature Granulocytes % 1.400 H Neutrophils % 60.8 Lymphocytes % 25.4 Monocytes % 8.1 Eosinophils % 3.7 Basophils % 0.6 Nucleated Red Blood Cells % 0.3 H Immature Granulocytes # 0.110 H Neutrophils # 4.8 Lymphocytes # 2.0 Monocytes # 0.6 Eosinophils # 0.3 Basophils # 0.1 Nucleated Red Blood Cells # 0.0 Sodium Level 140 Potassium Level 3.9 Chloride Level 106 Carbon Dioxide Level 27 Anion Gap 7 Blood Urea Nitrogen 8 Creatinine 0.83 Est Glomerular Filtrat Rate mL/min > 60 Glucose Level 85 Calcium Level 8.8 Medications Medication Current Medications Acetaminophen (Tylenol Tab) 650 mg Q6H PRN PO MILD PAIN(1-3)OR ELEVATED TEMP; Start 10/29/18 at 07:30 Acetaminophen/ Hydrocodone Bitart ([place] (5/325)) 1 tab Q6H PRN PO MODERATE PAIN LEVEL 4-6 Last administered on 11/01/18at 10:33; Admin Dose 1 TAB; Start 10/29/18 at 07:30 Ondansetron HCl (Zofran Inj) 4 mg Q6H PRN IV NAUSEA AND/OR VOMITING; Start 10/29/18 at 07:30 Pantoprazole (Protonix Tab) 40 mg DAILY@06 PO Last administered on 11/01/18at 06:09; Admin Dose 40 MG; Start 10/30/18 at 06:00 Benazepril HCl (Lotensin) 40 mg DAILY PO Last administered on 10/30/18at 09:28; Admin Dose 40 MG; Start 10/29/18 at 09:00 Ferric Sodium Gluconate Complex 125 mg/Sodium Chloride 110 ml @ 110 mls/hr DAILY@1300 IVPB Last administered on 10/31/18at 12:48; Admin Dose 110 MLS/HR; Start 10/30/18 at 13:00; Stop 11/03/18 at 13:59 Lactated Ringer's 1,000 ml @ 125 mls/hr Q8H IV Last administered on 11/01/18at 06:10; Admin Dose 125 MLS/HR; Start 10/30/18 at 19:08 DONY RUANO 23, 2019 12:31
[2018-11-01] MEDS: SOD FERRIC GLUC COMPLX 125 MG in SOD CHLORIDE 0.9% 100 ML IVPB SCH (13:06)
[2018-11-01 14:20] VITALS: BP 101/56; PULSE 67; RESP 17
[2018-11-01 20:45] VITALS: BP 113/55; PULSE 75; RESP 18
[2018-11-02 02:57] VITALS: BP 101/60; PULSE 77; RESP 18
--- NOTE | 2018-11-02 05:25 | OPR ---
DATE OF OPERATION: 10/31/2018 PREOPERATIVE DIAGNOSES: Uterine fibroid, menorrhagia. POSTOPERATIVE DIAGNOSES: Uterine fibroid, menorrhagia, submucosal fibroid noted. OPERATION PERFORMED: Hysteroscopy, dilatation and curettage. ANESTHESIA: General. ANESTHESIOLOGIST: Dr. Gan. SURGEON: Norman Siddiqui MD ESTIMATED BLOOD LOSS: Less than 10 mL. */+ ROCEDURE: Under the proper induction of general anesthesia, the patient was placed in dorsal lithoto my position. Perineal area and vagina wall were prepped and draped in usual aseptic manner. On insp ection, external genitalia revealed no gross abnormality. Bimanual examination, uterus felt to be mo re than 10 weeks of gestational size, form and consistency. There was no palpable adnexal pathology. Weighted speculum was introduced and cervix identified, which was grasped with a single tooth tenac ulum. Cavity sounded, which was approximately 10 cm. Os was dilated up to 8 and hysteroscopy which was connected to the normal saline was introduced into the cervix and advanced point to see the fundu s with both ostium. The cavity relatively small except the low segment, there was a submucous fibroi d tissue seen. Scope was removed and the cavity was curetted in all directions with obtaining some s garima tissue which was sent to pathology and the risks of the submucosal fibroid was applied to the u terine curettage to the poorly forceps was introduced. Cavity was searched for anything the removal with polyp forceps which did not reach to be anything. Followed by uterine curetted in all direction s I rescoped and the posterior aspect of the low segment of uterus. There was a small fibroid noted which is submucosal which was not able to be dissected out with a hysteroscope, which was not resecto scope. After procedure was done the cavity was rescoped and there were no other lesions noted. The procedure was completed. All the instruments were removed from the operative field and the patient w ithstood the procedure and was sent to the recovery room in stable condition. Dictated By: NORMAN SEYMOUR/ROSE MARIE Conf#: [id number] DID#: [id number]
[2018-11-02] MEDS: PANTOPRAZOLE (EC) 40 MG TAB PO SCH (06:29)
--- NOTE | 2018-11-02 08:11 | PDOCDIS ---
Discharge Instructions DIAGNOSIS Discharge Diagnosis vaginal bleeding CONDITION [id number] Patient Condition: [id number] Stable ACTIVITY: [id number] Activity Restrictions: [id number] Slowly Increase Activity Rest between Activity Avoid heavy lifting No Sexual Activity Avoid Heavy Housework FOLLOW UP/APPOINTMENTS Follow-up Plan PCP 1 week GYnecology 2 weeks SCHOOL/WORK RELEASE May return to School/Work with: With Restrictions DONY RUANO Nov 02, 2018 08:11
--- NOTE | 2018-11-02 08:30 | DS ---
Date/Time of Note Date/Time of Note DATE: 11/02/18 TIME: 08:30 Discharge Summary Admission/Discharge Info Admit Date/Time Oct 29, 2018 at 02:13 Discharge Date/Time Discharge Diagnosis vaginal bleeding Patient Condition: Stable Consults dr Siddiqui, gynecology Procedures hysterectomy Hospital Course This is a 53-year-old female with a past medical history of DUB for the past 3 months, who came to the emergency department because of worsening menstrual bleeding for the past few days. According to the patient, she feels that she is going through menopause. She started her bleeding on her period in August. Since then, intermittently on and off. She has been having bleeding. She has had multiple OCPs, Provera and other pills; however, it did not work. The patient was also admitted in [facility] in October, where she was diagnosed with DUB and was seen by DIVORCE ATTORNEY. The patient had also seen DIVORCE ATTORNEY and was supposed to have a biopsy as an outpatient. However, the patient started having worsening bleeding for the last few days and made her worried and came to the emergency department. According to the patient, she was soaking a pad every 1 hour. The patient was feeling weak, dizzy. The patient also reported on her last admission at [facility], she required a blood transfusion. On admission, vital signs showed temperature 99.1, pulse 85, respirations 16, blood pressure 142/70. White count 8.4, hemoglobin 8.1. BMP within normal limit. The patient had a pelvic ultrasound; however, that showed consistent with uterine fibroids as noted above and the patient was admitted for further management. PAST MEDICAL HISTORY: 1. Hypertension. 2. Anemia. 3. History of UTI.1. Recurrent menorrhagia secondary to DUB; however, a pelvic ultrasound shows the patient has multiple fibroids. S/p hysterectomy 10/11 2. Acute blood loss anemia hemoglobin was 10 secondary to #1. 3. History of hypertension. 4 Iron deficiency anemia 5. Obesity during hospitalization Cw Operator saw the pt and offered her hysterectomy. Dr Siddiqui performed it and we c/w iv iron for her. However Hg was around 7.7 and 7.6. Showed the iron saturation is low. Pt was asked if she can be given and dc home. She replied that she prefer c/w iron supplement and will see her PCP and perfom a blood work. Pt anemia is asymptomatic. She ate well, ambulate, denied pain. student loan counselor was called to see if there is any recommendations after d/c but i was unable to reach them, Home Meds Active Scripts Ferrous Sulfate* (Ferrous Sulfate*) 325 Mg Tabec, 325 MG PO BID for 30 Days, TAB Prov:DONY RUANO 11/02/18 Reported Medications Pantoprazole* (Pantoprazole*) 40 Mg Tablet.dr, 40 MG PO DAILY, TAB 10/28/18 Ibuprofen* (Ibuprofen*) 800 Mg Tab, 800 MG PO Q6H PRN for PAIN, TAB 10/28/18 Benazepril Hcl* (Benazepril Hcl*) 40 Mg Tablet, 40 MG PO DAILY, #30 TAB 10/28/18 Discontinued Reported Medications Nitrofurantoin Monohyd Macrocr (Macrobid) 100 Mg Capsr, 100 MG PO BID for 7 Days, #14 TK 1 C PO BID FOR 7 DAYS 10/28/18 Tranexamic Acid (TRANEXAMIC ACID) 650 Mg Tablet, 650 MG PO, TAB 10/28/18 Follow-up Plan PCP 1 week GYnecology 2 weeks Primary Care Provider Not On Staff Doctor Time spent on discharge: < 30 minutes Pending Labs Laboratory Tests Test 11/02/18 06:51 White Blood Count 8.0 10^3/ul (4.8-10.8) Red Blood Count 2.90 10^6/ul (4.20-5.40) Hemoglobin 7.6 g/dl (12.0-16.0) Hematocrit 23.8 % (37.0-47.0) Mean Corpuscular Volume 82.1 fl (82.0-101.0) Mean Corpuscular Hemoglobin 26.2 pg (29.0-33.0) Mean Corpuscular Hemoglobin Concent 31.9 g/dl (32.0-37.0) Red Cell Distribution Width 21.6 % (11.5-14.5) Platelet Count 265 10^3/UL (140-415) Mean Platelet Volume 9.4 fl (7.4-10.4) Immature Granulocytes % 3.900 % (0.001-0.429) Neutrophils % 53.1 % (39.0-77.0) Lymphocytes % 28.9 % (15.0-51.0) Monocytes % 8.4 % (0.0-11.0) Eosinophils % 4.9 % (0.0-7.0) Basophils % 0.8 % (0.0-2.0) Nucleated Red Blood Cells % 0.8 /100WBC (0.0-0.0) Immature Granulocytes # 0.310 10^3/ul (0.0-0.031) Neutrophils # 4.2 10^3/ul (1.6-7.5) Lymphocytes # 2.3 10^3/ul (0.8-2.9) Monocytes # 0.7 10^3/ul (0.3-0.9) Eosinophils # 0.4 10^3/ul (0.0-0.5) Basophils # 0.1 10^3/ul (0.0-0.1) Nucleated Red Blood Cells # 0.1 10^3/ul (0.0-0.0) Sodium Level 139 mmol/L (135-144) Potassium Level 4.1 mmol/L (3.5-5.1) Chloride Level 104 mmol/L (97-110) Carbon Dioxide Level 28 mmol/L (21-31) Anion Gap 7 (5-13) Blood Urea Nitrogen 9 mg/dl (7-20) Creatinine 0.84 mg/dl (0.44-1.00) Est Glomerular Filtrat Rate mL/min > 60 mL/min (>60) Glucose Level 88 mg/dl (70-220) Calcium Level 9.1 mg/dl (8.4-10.2) DONY RUANO 24, 2019 08:30
[2018-11-02] MEDS: BENAZEPRIL 40 MG TAB PO SCH (08:34)
[2018-11-02] MEDS: HYDROCODONE/APAP (5/325) TAB PO PRN (08:37)
[2018-11-02 08:38] VITALS: BP 140/77; PULSE 73
[2018-11-02] MEDS ORDERED: MINERAL OIL 30ML CUP PO ONE (09:00)
--- NOTE | 2018-11-02 11:11 | PN ---
Date/Time of Note Date/Time of Note DATE: 11/02/18 TIME: 11:09 Assessment/Plan VTE Prophylaxis Risk score (from Ns)>0 risk: 2 [place] applied [place] [facility] Pharmacological prophylaxis: NA/contraindicated Pharm contraindication: surgical contra Lines/Catheters IV [facility] Peripheral IV Urinary Cath still in place: No Assessment/Plan Hospital Course 1. Recurrent menorrhagia secondary to DUB; however, a pelvic ultrasound shows the patient has multiple fibroids. S/p hysterectomy 11/01/2018 2. Acute blood loss anemia hemoglobin was 10 secondary to #1. 3. History of hypertension. 4 Iron deficiency anemia 5. Obesity Assessment/Plan -called dr Laurie rodriguez, unable to reach one online marketing manager -yesterday gynecology did not drop a note -need clearance from gynecology, spoke to nursing -spoke to pt hemoglobin and offered transfusion, she is in doubt. Explained that her hb is 7.7 and it is low. SHe should be continued on Iron supplement BID and F/up PCP in 1 week for CBC Result Diagram: 11/02/18 0651 11/02/18 0651 Results 24hrs Laboratory Tests Test 11/02/18 06:51 White Blood Count 8.0 Red Blood Count 2.90 L Hemoglobin 7.6 L Hematocrit 23.8 L Mean Corpuscular Volume 82.1 Mean Corpuscular Hemoglobin 26.2 L Mean Corpuscular Hemoglobin Concent 31.9 L Red Cell Distribution Width 21.6 H Platelet Count 265 Mean Platelet Volume 9.4 Immature Granulocytes % 3.900 H Neutrophils % 53.1 Lymphocytes % 28.9 Monocytes % 8.4 Eosinophils % 4.9 Basophils % 0.8 Nucleated Red Blood Cells % 0.8 H Immature Granulocytes # 0.310 H Neutrophils # 4.2 Lymphocytes # 2.3 Monocytes # 0.7 Eosinophils # 0.4 Basophils # 0.1 Nucleated Red Blood Cells # 0.1 H Sodium Level 139 Potassium Level 4.1 Chloride Level 104 Carbon Dioxide Level 28 Anion Gap 7 Blood Urea Nitrogen 9 Creatinine 0.84 Est Glomerular Filtrat Rate mL/min > 60 Glucose Level 88 Calcium Level 9.1 Subjective 24 Hr Interval Summary Constitutional: no complaints, improved Cardiovascular: lightheadedness; No no complaints, No chest pain, No edema, No orthopenea, No palpitations, No paroxysmal nocturnal dyspnea, No other Exam/Review of Systems Exam Vitals Vital Signs Date Temp Pulse Resp B/P (MAP) Pulse Ox O2 O2 Flow FiO2 Time Delivery Rate 11/02/18 98.5 73 140/77 100 Room Air 08:38 (98) 11/02/18 18 02:57 10/31/18 8.0 16:23 Intake and Output 11/01/18 11/01/18 11/02/18 1515:00 23:00 07:00 IntakeIntake Total 2009 ml BalanceBalance 2009 ml Constitutional: alert, oriented Eyes: nl conjunctiva Neck: supple Cardiovascular: regular rate and rhythm Gastrointestinal: soft Genitourinary - Female: nl adnexae Results Results 24hrs Laboratory Tests Test 11/02/18 06:51 White Blood Count 8.0 Red Blood Count 2.90 L Hemoglobin 7.6 L Hematocrit 23.8 L Mean Corpuscular Volume 82.1 Mean Corpuscular Hemoglobin 26.2 L Mean Corpuscular Hemoglobin Concent 31.9 L Red Cell Distribution Width 21.6 H Platelet Count 265 Mean Platelet Volume 9.4 Immature Granulocytes % 3.900 H Neutrophils % 53.1 Lymphocytes % 28.9 Monocytes % 8.4 Eosinophils % 4.9 Basophils % 0.8 Nucleated Red Blood Cells % 0.8 H Immature Granulocytes # 0.310 H Neutrophils # 4.2 Lymphocytes # 2.3 Monocytes # 0.7 Eosinophils # 0.4 Basophils # 0.1 Nucleated Red Blood Cells # 0.1 H Sodium Level 139 Potassium Level 4.1 Chloride Level 104 Carbon Dioxide Level 28 Anion Gap 7 Blood Urea Nitrogen 9 Creatinine 0.84 Est Glomerular Filtrat Rate mL/min > 60 Glucose Level 88 Calcium Level 9.1 Medications Medication Current Medications Acetaminophen (Tylenol Tab) 650 mg Q6H PRN PO MILD PAIN(1-3)OR ELEVATED TEMP; Start 10/29/18 at 07:30 Acetaminophen/ Hydrocodone Bitart ([place] (5/325)) 1 tab Q6H PRN PO MODERATE PAIN LEVEL 4-6 Last administered on 11/02/18at 08:37; Admin Dose 1 TAB; Start 10/29/18 at 07:30 Ondansetron HCl (Zofran Inj) 4 mg Q6H PRN IV NAUSEA AND/OR VOMITING; Start 10/29/18 at 07:30 Pantoprazole (Protonix Tab) 40 mg DAILY@06 PO Last administered on 11/02/18at 0 6:29; Admin Dose 40 MG; Start 10/30/18 at 06:00 Benazepril HCl (Lotensin) 40 mg DAILY PO Last administered on 11/02/18at 08:34; Admin Dose 40 MG; Start 10/29/18 at 09:00 Ferric Sodium Gluconate Complex 125 mg/Sodium Chloride 110 ml @ 110 mls/hr DAILY@1300 IVPB Last administered on 11/01/18at 13:06; Admin Dose 110 MLS/HR; Start 10/30/18 at 13:00; Stop 11/03/18 at 13:59 DONY RUANO 24, 2019 11:11
[2018-11-02] MEDS ORDERED: FER325 PO (12:45)
[2018-11-02] MEDS: SOD FERRIC GLUC COMPLX 125 MG in SOD CHLORIDE 0.9% 100 ML IVPB SCH (13:44)
[2018-11-02 14:16] VITALS: BP 112/58; RESP 17
== END 2018-11-02 16:54 | disposition home or self-care (01) | DRG 744 ==
LOC: E/R 20:10 → PP2 10-29 02:13 → CANRESERV 10-29 03:30
PROVIDERS: ADMIT Internal Medicine; ATTEND Internal Medicine
PROC: 0UDB8ZX Extraction of Endometrium, Via Natural or Artificial Opening Endoscopic, Diagnostic (ICD-10-PCS; principal; 2018-10-31 15:00)
DX: N93.8 Other specified abnormal uterine and vaginal bleeding (principal); D62 Acute posthemorrhagic anemia; N92.0 Excessive and frequent menstruation with regular cycle; I10 Essential (primary) hypertension; D50.9 Iron deficiency anemia, unspecified; E66.9 Obesity, unspecified; Z68.32 Body mass index [BMI] 32.0-32.9, adult; D25.1 Intramural leiomyoma of uterus; D25.0 Submucous leiomyoma of uterus
CPT/HCPCS: 36415; 76830; 76856; 80048; 81001; 83540; 84146; 84439; 84443; 85014; 85018; 85025; 86850; 86900; 86901; 88305; J0690; J1170; J2250; J2405; J2916; J3010; J7030; J7120

== ENCOUNTER 2018-12-28 13:59 | Emergency (ER) | payer OTHER ==
[~2018-12-28] VITALS: Ht 157.5 cm; Wt 80.0 kg
[~2018-12-28 13:59] MED LIST: BENA40TA56 PO; FER325 PO; IBUP-1545 PO; PANT40TA4 PO
[2018-12-28 14:01] VITALS: Ht 157.5 cm; Wt 80.0 kg
[2018-12-28] MEDS ORDERED: SOD CHLORIDE 0.9% 1,000 ML IV STA (14:15)
[2018-12-28] MEDS ORDERED: KETOROLAC 30 MG INJ IV STA (16:34)
[2018-12-28] MEDS ORDERED: ACETAMINOPHEN 325 MG TAB PO ONE (17:00)
[2018-12-28] MEDS ORDERED: FER325 PO (17:19)
[2018-12-28 17:32] VITALS: BP 151/87; PULSE 68; RESP 18
--- NOTE | 2018-12-29 19:00 | ERD ---
ER Documentation Chief Complaint Chief Complaint HX UTERINE FIBROIDS, IS BLEEDING HEAVY X 3 DAYS HPI 53-year-old female patient with a past medical history of hypertension, anemia, uterine fibroids presents the ED complaining of vaginal bleeding that occurred 3 days ago. Patient reports that when she stands up, she feels dizzy. States that she got a fibroidectomy on November 02, 2018. States that she usually takes benazepril for hypertension, ferrous sulfate for her anemia. Reports that her DIRECTOR OF REHABILITATION AND WELLNESS is Dr. Fraser. States that she has had 2 previous C-sections in 1998 and 2001. ROS All systems reviewed and are negative except as per history of present illness. Medications Home Meds Active Scripts Ferrous Sulfate* (Ferrous Sulfate*) 325 Mg Tabec, 325 MG PO TID, #90 TAB Prov:JOAN LYNN PA-C 12/28/18 Ferrous Sulfate* (Ferrous Sulfate*) 325 Mg Tabec, 325 MG PO BID for 30 Days, TAB Prov:DONY RUANO 11/02/18 Reported Medications Pantoprazole* (Pantoprazole*) 40 Mg Tablet.dr, 40 MG PO DAILY, TAB 10/28/18 Ibuprofen* (Ibuprofen*) 800 Mg Tab, 800 MG PO Q6H PRN for PAIN, TAB 10/28/18 Benazepril Hcl* (Benazepril Hcl*) 40 Mg Tablet, 40 MG PO DAILY, #30 TAB 10/28/18 Allergies Allergies: Coded Allergies: aspirin (Unverified Adverse Reaction, Intermediate, EYE BLOODSHOT, ) ibuprofen (Unverified Adverse Reaction, Intermediate, EYE BLOODSHOT, 10/28/18) PMhx/Soc History of Surgery: Yes (CS section 2011, 1992) Anesthesia Reaction: No Hx Neurological Disorder: No Hx Respiratory Disorders: No Hx Cardiac Disorders: Yes (HTN) Hx Psychiatric Problems: No Hx Miscellaneous Medical Probl: Yes (uterine fibroids) Hx Alcohol Use: No Hx Substance Use: No Hx Tobacco Use: No Smoking Status: Never smoker FmHx Family History: No diabetes, No coronary disease Physical Exam Vitals Vital Signs Date Temp Pulse Resp B/P (MAP) Pulse Ox O2 O2 Flow FiO2 Time Delivery Rate 12/28/18 98.7 68 18 151/87 100 Room Air 17:32 (108) 5/19/19 98.2 89 18 160/89 99 14:01 (112) Physical Exam Const: [id number], well-nourished. In no acute distress. Head: Atraumatic, normocephalic Eyes: Normal Conjunctiva without injection. No purulent discharge. ENT: Normal external ear, nose. Moist oropharynx without tonsillar exudates. Non-erythematous pharynx. Uvula midline. No drooling. No trismus. Neck: No cervical midline tenderness. Full range of motion. No meningismus. No cervical lymphadenopathy. No JVD. Resp: Clear to auscultation bilaterally. No wheezing, rhonchi, rales, or crackles. No accessory muscle use. No retractions. Cardio: Regular rate and rhythm. No murmurs, rubs or gallops. Abd: Soft, nontender, non distended. Normal bowel sounds. No palpable masses. No rebound tenderness. No guarding. Negative McBurney's point. Negative psoas sign. Negative obturator sign. Skin: No petechiae or rashes Back: No midline tenderness. No CVA tenderness. Ext: No cyanosis, or edema. Neur: Awake and alert. Normal gait. Normal coordination. Psych: Normal Mood and Affect Results 24 hrs Laboratory Tests Test 12/28/18 14:30 12/28/18 15:21 White Blood Count 10.0 10^3/ul Red Blood Count 4.50 10^6/ul Hemoglobin 11.8 g/dl Hematocrit 35.8 % Mean Corpuscular Volume 79.6 fl Mean Corpuscular Hemoglobin 26.2 pg Mean Corpuscular Hemoglobin Concent 33.0 g/dl Red Cell Distribution Width 13.7 % Platelet Count 347 10^3/UL Mean Platelet Volume 8.8 fl Immature Granulocytes % 0.400 % Neutrophils % 68.3 % Lymphocytes % 18.0 % Monocytes % 8.2 % Eosinophils % 4.6 % Basophils % 0.5 % Nucleated Red Blood Cells % 0.0 /100WBC Immature Granulocytes # 0.040 10^3/ul Neutrophils # 6.8 10^3/ul Lymphocytes # 1.8 10^3/ul Monocytes # 0.8 10^3/ul Eosinophils # 0.5 10^3/ul Basophils # 0.1 10^3/ul Nucleated Red Blood Cells # 0.0 10^3/ul Urine Color YELLOW Urine Clarity CLEAR Urine pH 6.0 Urine Specific Plummer 1.013 Urine Ketones NEGATIVE mg/dL Urine Nitrite NEGATIVE mg/dL Urine Bilirubin NEGATIVE mg/dL Urine Urobilinogen NEGATIVE mg/dL Urine Leukocyte Esterase NEGATIVE Marilyn/ul Urine Microscopic RBC > 182 /HPF Urine Microscopic WBC 5 /HPF Urine Hemoglobin 3+ mg/dL Urine Glucose NEGATIVE mg/dL Urine Total Protein NEGATIVE mg/dl Sodium Level 141 mmol/L Potassium Level 3.8 mmol/L Chloride Level 103 mmol/L Carbon Dioxide Level 31 mmol/L Anion Gap 7 Blood Urea Nitrogen 11 mg/dl Creatinine 0.89 mg/dl Est Glomerular Filtrat Rate mL/min > 60 mL/min Glucose Level 161 mg/dl Calcium Level 9.2 mg/dl Total Bilirubin 0.4 mg/dl Direct Bilirubin 0.00 mg/dl Indirect Bilirubin 0.4 mg/dl Aspartate Amino Transf (AST/SGOT) 25 IU/L Alanine Aminotransferase (ALT/SGPT) 19 IU/L Alkaline Phosphatase 89 IU/L Total Protein 7.5 g/dl Albumin 4.2 g/dl Globulin 3.30 g/dl Albumin/Globulin Ratio 1.27 POC Beta HCG, Qualitative NEGATIVE Current Medications Medications Dose Sig/Corky Start Time Status Last (Trade) Ordered Route PRN Stop Time Admin Dose Reason Admin Sodium 1,000 ml @ Q1H STAT 12/28/18 DC 12/28/18 Chloride 1,000 mls/hr IV 14:15 14:39 12/28/18 15:14 Ketorolac 30 mg ONCE STAT 12/28/18 Cancel Tromethamine IV 16:34 (Toradol) 12/28/18 16:35 650 mg ONCE ONCE 12/28/18 DC 12/28/18 Acetaminophen PO 17:00 16:49 (Tylenol 12/28/18 17:01 Tab) Procedures/MDM 53-year-old female patient with a past medical history of hypertension, anemia presents to the ED complaining of heavy vaginal bleeding with her uterine fibroids. Patient is afebrile and nontoxic-appearing. Patient's blood pressure is 160/89. Blood Pressure Assessment: Patient's blood pressure was elevated (>120/80) but appears stable without evidence of hypertension emergency or urgency. The patient was counseled about the risks of hypertension and urged to pursue outpatient monitoring and therapy within a week with their primary care physician. Patient was further worked up with CBC, CMP, UA, pelvic ultrasound. Patient's pain and symptoms have improved after treatment with a liter of normal saline, 30 mg IV Toradol, 650 mg Tylenol. CBC: No leukocytosis. No e/o of systemic infection. No e/o anemia. CMP: No e/o severe acidosis, alkalosis, renal failure, diabetic ketoacidosis, liver disease Lipase within normal limits. Urine: No leukocyte esterase, no nitrites, no hematuria. Urine : Negative Low suspicion for ectopic , ovarian torsion, gastritis, GERD, peptic ulcer disease, cholecystitis, choledocholithiasis, cholangitis, pancreatitis, appendicitis, bowel obstruction, ileus, volvulus, nephrolithiasis, pyelonephritis, hepatitis, perforated viscus, diverticulitis, strangulated/incarcerated hernia, DKA, acute abdomen, mesenteric ischemia or other emergent conditions. Patient's case was discussed with patient's DIRECTOR OF REHABILITATION AND WELLNESS, Dr. Fraser, stated that patient can be managed on outpatient basis. Patient is hemodynamically stable. Diagnosis: Vaginal bleeding Discharge medications: Ferrous sulfate Follow up with primary care physician in 1-2 days. Instructed patient to return to the ED sooner for any worsening symptoms. Patient's questions were answered. Patient is hemodynamically stable. Patient understood and agreed with discharge plan. Patient discharged stable. Disclaimer: Inadvertent spelling and grammatical errors are likely due to EHR/dictation software use and do not reflect on the overall quality of patient care. Also, please note that the electronic time recorded on this note does not necessarily reflect the actual time of the patient encounter. Departure Diagnosis: Primary Impression: Vaginal bleeding Condition: Stable Patient Instructions: What Are Fibroids? Referrals: MEIR ZAPATA MD [facility] YOU HAVE RECEIVED A MEDICAL SCREENING EXAM AND THE RESULTS INDICATE THAT YOU DO NOT HAVE A CONDITION THAT REQUIRES URGENT TREATMENT IN THE EMERGENCY DEPARTMENT. FURTHER EVALUATION AND TREATMENT OF YOUR CONDITION CAN WAIT UNTIL YOU ARE SEEN IN YOUR DOCTORS OFFICE WITHIN THE NEXT 1-2 DAYS. IT IS YOUR RESPONSIBILITY TO MAKE AN APPOINTMENT FOR FOLOW-UP CARE. IF YOU HAVE A PRIMARY DOCTOR --you should call your primary doctor and schedule an appointment IF YOU DO NOT HAVE A PRIMARY DOCTOR YOU CAN CALL OUR PHYSICIAN REFERRAL HOTLINE AT IF YOU CAN NOT AFFORD TO SEE A PHYSICIAN YOU CAN CHOSE FROM THE FOLLOWING [facility] [address] [facility] [address] [facility] [address] [facility] [address] [facility] [phone] [facility]. [address] [facility]. [facility] YOU HAVE RECEIVED A MEDICAL SCREENING EXAM AND THE RESULTS INDICATE THAT YOU DO NOT HAVE A CONDITION THAT REQUIRES URGENT TREATMENT IN THE EMERGENCY DEPARTMENT. FURTHER EVALUATION AND TREATMENT OF YOUR CONDITION CAN WAIT UNTIL YOU ARE SEEN IN YOUR DOCTORS OFFICE WITHIN THE NEXT 1-2 DAYS. IT IS YOUR RESPONSIBILITY TO MAKE AN APPOINTMENT FOR FOLOW-UP CARE. IF YOU HAVE A PRIMARY DOCTOR --you should call your primary doctor and schedule and appointment IF YOU DO NOT HAVE A PRIMARY DOCTOR YOU CAN CALL OUR PHYSICIAN REFERRAL HOTLINE AT . IF YOU CAN NOT AFFORD TO SEE A PHYSICIAN YOU CAN CHOSE FROM THE FOLLOWING [facility] INSTITUTIONS: [facility] [address] [place] [address] [facility] [address] [place] [address] [facility] [address] [place] [address] [facility]CIALTIES DIRECTOR OF REHABILITATION AND WELLNESS [place] [address] [facility] [address] [place], [place] [id number] OFFICE FAX PEPE QUIGLEY [address] [place] [address] [address] [address] [place], [place] [id number] ESTELA BACA [address] [facility], [address] [address] [address] [address] [place] [address] [facility] [address] [place] [address] [address] [facility] [phone] - DR ARRIAGA, CARPI [address], [facility] [phone] DR WONG, VIANNEY [address] [facility]. [address], [facility] [address] [address] BRENNAN, FARID [address] [place] [address] [facility] Hours: 8:00 am - 5:00 pm Additional Instructions: Llame y siga con la oficina del Dr. Bria douglas para amelia james. Dgale a la secretaria que nosotros le instruimos hacer esta james.Avise o llame si marques condicin se empeora antes de la james. Regresa aqui si peor o no mejor. JOAN LYNN PA-C December 29, 2018 19:00
== END 2018-12-28 17:45 | disposition home or self-care (01) ==
LOC: FTE 13:59
DX: N93.9 Abnormal uterine and vaginal bleeding, unspecified (principal); I10 Essential (primary) hypertension
CPT/HCPCS: 76830; 76856; 80053; 81001; 81025; 85025; 86850; 86900; 86901; J7030; Z7610; 36415; 96360; 96361; J1885